=== PATIENT | female | born 1985 | race Caucasian/White ===

== ENCOUNTER 2022-10-11 05:54 | Emergency (ER) | payer OTHER ==
[~2022-10-11] VITALS: Ht 167.6 cm; Wt 63.5 kg
--- NOTE | 2022-10-11 06:31 | NUR ---
BIBSELF FROM HOME C/O VAGINAL BLEEDING X7 WEEKS. + DIZZINESS/WEAKNESS X1 WK ON CONTROL PILL STARTED 1 YR AGO. PT A/OX3. TOLERATING R/A WELL WITH NO RESP DISTRESS. CONNECTED PT TO POX AND MONITOR. SAFETY MEASURES IN PLACE.
--- NOTE | 2022-10-11 06:40 | NUR ---
PROVIDED PT WITH URINE CUP; NOT ABLE TO URINATE AT THIS TIME
--- NOTE | 2022-10-11 06:44 | NUR ---
DR. JOSE MANUEL BANGURA AT PT'S BEDSIDE
--- NOTE | 2022-10-11 07:14 | NUR ---
URINE COLLECTED AND SENT TO LAB
[2022-10-11 07:30] LABS: BASOPHILS % (AUTO) 0.3 % (0.0-2.0); EOSINOPHILS % (AUTO) 1.3 % (0.0-6.0); HEMATOCRIT 33 % (33-45); HEMOGLOBIN 10.9 g/dL (11.5-14.8); LYMPHOCYTES # (AUTO) 2.1 K/uL (0.8-4.8); LYMPHOCYTES % (AUTO) 20.2 % (20.0-44.0); MEAN CORPUSCULAR HGB CONC 34 g/dl (31.0-36.0); MEAN CORPUSCULAR VOLUME 90 fL (82-100); MONOCYTES # (AUTO) 0.5 K/uL (0.1-1.30); NEUTROPHILS # (AUTO) 7.7 K/uL (1.8-8.9); NEUTROPHILS % (AUTO) 73.2 % (43.0-81.0); PLATELET COUNT (AUTO) 322 K/uL (150-450); WHITE BLOOD COUNT (AUTO) 10.5 K/uL (4.3-11.0)
[2022-10-11 07:55] LABS: CALCIUM, SERUM 8.9 mg/dL (8.5-10.1); CREATININE 0.7 mg/dL (0.6-1.3); POTASSIUM 4.3 mmol/L (3.5-5.1)
[2022-10-11 07:59] LABS: ALBUMIN 3.1 g/dL (3.4-5.0); BILIRUBIN,DIRECT 0.1 mg/dL (0.0-0.2); BILIRUBIN,TOTAL 0.2 mg/dL (0.2-1.0); TOTAL PROTEIN, SERUM 7.2 g/dL (6.4-8.2)
--- NOTE | 2022-10-11 08:30 | NUR ---
TECH SEEN PT FOR ULTRASOUND AT BEDSIDE
[2022-10-11] MEDS ORDERED: IBUP-1955 PO (09:11)
[2022-10-11] MEDS ORDERED: BENZ-13 PO (09:11)
[2022-10-11] MEDS ORDERED: FERR325T23 PO (09:13)
--- NOTE | 2022-10-11 09:18 | NUR ---
Patient discharged to home in stable condition. Written and verbal after care instructions given. Patient verbalizes understanding of instruction.
[2022-10-11 09:22] VITALS: BP 125/76
== END 2022-10-11 09:23 | disposition home or self-care (01) ==
LOC: ER 06:14
DX: D25.1 Intramural leiomyoma of uterus (principal); D64.9 Anemia, unspecified; N92.0 Excessive and frequent menstruation with regular cycle; R05.9 Cough, unspecified; Z79.899 Other long term (current) drug therapy
CPT/HCPCS: 36415; 76856-TC; 80048-TC; 80076-TC; 84703-TC; 85025-TC; 85730-TC